=== PATIENT | male | born 1990 | race American Indian/Alaskan Native ===

== ENCOUNTER 2020-05-31 09:45 | Emergency (ER) | payer SELFPAY ==
[2020-05-31 09:58] VITALS: BP 136/100
[2020-05-31] MEDS ORDERED: LIDOCAINE 1%/EPINEPHRINE 1:100,000 VIAL (20 ML) INFILTRATI ONE (10:14)
[2020-05-31] MEDS ORDERED: HYDROcodone/ACETAMINOPHEN 10-325MG TAB PO ONE (10:14)
[2020-05-31] MEDS ORDERED: ONDANSETRON 4 MG ODT TAB PO ONE (10:15)
--- NOTE | 2020-05-31 10:18 | Event Note ---
ED Screening Note Date of service: 05/31/20 Time: 10:16 ED Screening Note: pt presents to ED with painful swollen area to medial proximal right thigh. Onset this past sunday. Denies fever or chills. Denies similar in past. Reports that he vomitted x 2 yesterday due to pain PMHX: nothing significant This initial assessment/diagnostic orders/clinical plan/treatment(s) is/are subject to change based on patients health status, clinical progression and re- assessment by fellow clinical providers in the ED. Further treatment and workup at subsequent clinical providers discretion. Patient/guardian urged not to elope from the ED as their condition may be serious if not clinically assessed and managed. Initial orders include: I&D
--- NOTE | 2020-05-31 11:15 | Emergency Department Report ---
ED General Adult HPI - General Chief complaint: Skin/Abscess/Foreign Body Stated complaint: RT LEG PAIN Time Seen by Provider: 05/31/20 10:14 Source: patient Mode of arrival: Ambulatory Limitations: No Limitations - History of Present Illness Initial comments: 29-year-old male without significant past medical history presents with chief complaint of pain and swelling to the right thigh, gradual onset on Sunday. The patient denies fever, chills or any systemic symptoms. He denies any prior history of similar. He denies any trauma or instrumentation to the area. Denies any testicular pain or swelling. Pain is severe, no exacerbating or alleviating factors. Severity scale (0 -10): 10 - Related Data Previous Rx's Medication Instructions Recorded Last Taken Type Ondansetron [Zofran Odt] 4 mg PO Q8HR #12 tab.rapdis 05/31/20 Unknown Rx Sulfamethoxazole/Trimethoprim 1 each PO BID #20 tablet 05/31/20 Unknown Rx [Bactrim DS TAB] cephALEXin [Keflex] 500 mg PO Q6HR #40 capsule 05/31/20 Unknown Rx oxyCODONE /ACETAMINOPHEN [Percocet 1 tab PO Q6HR PRN #12 tablet 05/31/20 Unknown Rx 5/325] Allergies Allergy/AdvReac Type Severity Reaction Status Date / Time No Known Allergies Allergy Unverified 05/31/20 09:55 ED Review of Systems ROS: Stated complaint: RT LEG PAIN Other details as noted in HPI Comment: All other systems reviewed and negative ED Past Medical Hx - Past Medical History Previous Medical History?: No - Surgical History Past Surgical History?: No - Social History Smoking Status: Never Smoker Substance Use Type: Alcohol - Medications Home Medications: Home Medications Medication Instructions Recorded Confirmed Last Taken Type Ondansetron [Zofran Odt] 4 mg PO Q8HR #12 tab.rapdis 05/31/20 Unknown Rx Sulfamethoxazole/Trimethoprim 1 each PO BID #20 tablet 05/31/20 Unknown Rx [Bactrim DS TAB] cephALEXin [Keflex] 500 mg PO Q6HR #40 capsule 05/31/20 Unknown Rx oxyCODONE /ACETAMINOPHEN [Percocet 1 tab PO Q6HR PRN #12 tablet 05/31/20 Unknown Rx 5/325] ED Physical Exam - General Limitations: No Limitations General appearance: alert, in no apparent distress - Head Head exam: Present: atraumatic, normocephalic - Eye Eye exam: Present: normal appearance - ENT ENT exam: Present: mucous membranes moist - Neck Neck exam: Present: normal inspection - Respiratory Respiratory exam: Present: normal lung sounds bilaterally. Absent: respiratory distress - Cardiovascular Cardiovascular Exam: Present: regular rate, normal rhythm. Absent: systolic murmur, diastolic murmur, rubs, gallop - GI/Abdominal GI/Abdominal exam: Present: soft, normal bowel sounds - Rectal Rectal exam: Present: deferred - Extremities Exam Extremities exam: Present: normal inspection - Back Exam Back exam: Present: normal inspection - Neurological Exam Neurological exam: Present: alert, oriented X3 - Psychiatric Psychiatric exam: Present: normal affect, normal mood - Skin Skin exam: Present: warm, dry, intact, normal color, other (Large area of induration with central fluctuance noted to the right proximal medial thigh extending to the groin but does not involve the perineal/genital area). Absent: rash ED Course Vital Signs 05/31/20 09:55 Temperature 98.6 F Pulse Rate 86 Respiratory 20 Rate Blood Pressure 136/100 O2 Sat by Pulse 96 Oximetry - I & D Right medial thigh Type of Procedure: Simple Site: Right medial thigh measuring greater than 10 cm Blade Size: 11 I & D Procedure: betadine prep, sterile drapes applied, sterile dressing applied, gauze wick placed Progress: Tolerated well large amount of bloody purulent drainage ED Medical Decision Making - Medical Decision Making Patient present with large area of cellulitis/abscess noted to the right thigh. No evidence to suggest Kam's gangrene, necrotizing fasciitis or other surgical emergent process at this time. Will perform I&D and placed on antibiotics with 2-day outpatient follow-up. Discussed need for immediate return if any pain or swelling or erythema extends into the genitalia/perineal region. Will refer to general surgery for follow-up if symptoms are not improving.. Patient given [place] for pain. - Differential Diagnosis Abscess, cellulitis Critical care attestation.: If time is entered above; I have spent that time in minutes in the direct care of this critically ill patient, excluding procedure time. ED Disposition Clinical Impression: Abscess Cellulitis Qualifiers: Site of cellulitis: unspecified site Qualified Code(s): L03.90 - Cellulitis, unspecified Disposition: TO HOME OR SELFCARE Is pt being admited?: No Condition: Good Instructions: Cellulitis, Adult, Skin Abscess, Incision and Drainage, Care After Prescriptions: Sulfamethoxazole/Trimethoprim [Bactrim DS TAB] 1 each PO BID #20 tablet cephALEXin [Keflex] 500 mg PO Q6HR #40 capsule oxyCODONE /ACETAMINOPHEN [Percocet 5/325] 1 tab PO Q6HR PRN #12 tablet PRN Reason: Pain Ondansetron [Zofran Odt] 4 mg PO Q8HR #12 tab.rapdis Referrals: ILYA NORTON MD [Staff Physician] - 3-5 Days Time of Disposition: 11:42
== END 2020-05-31 12:29 | disposition home or self-care (01) ==
LOC: ED 09:45
DX: L02.415 Cutaneous abscess of right lower limb (principal); L03.115 Cellulitis of right lower limb; Z79.899 Other long term (current) drug therapy
CPT/HCPCS: Q0162